=== PATIENT | male | born 1955 | race Caucasian/White ===

== ENCOUNTER 2017-12-04 10:42 | Day surgery (SDC) | END 2017-12-04 17:15 | disposition home or self-care (01) ==

== ENCOUNTER 2017-12-13 20:28 | Emergency (ER) | END 2017-12-14 02:50 | disposition home or self-care (01) ==

== ENCOUNTER 2017-12-19 11:21 | Emergency (ER) | END 2017-12-19 17:22 | disposition home or self-care (01) ==

== ENCOUNTER 2018-01-29 01:45 | Emergency (ER) | payer MEDICARE, OTHER ==
[~2018-01-29] VITALS: Ht 172.7 cm; Wt 80.0 kg
[~2018-01-29 01:45] MED LIST: ASPI81TA52 PO; ATOR40TA68 PO; BUPR150T18 PO; CLON0.5T14 PO; DOCU-144 PO; DONE10TA7 PO; FAMO40TA5 PO; GABA100C14 PO; POTA10TA37 PO; RISP0.5T3 PO
[2018-01-29 01:56] VITALS: Ht 172.7 cm; Wt 80.0 kg
[2018-01-29] MEDS ORDERED: SOD CHLORIDE 0.9% 500 ML IV STA (02:05)
[2018-01-29] MEDS ORDERED: ALBUTEROL 0.083% (NEB) 2.5 MG/3 ML AMP HHN STA (02:05)
[2018-01-29] MEDS ORDERED: RISP3TAB3 PO (02:21)
[2018-01-29] MEDS ORDERED: GABA300C16 PO (02:21)
[2018-01-29] MEDS ORDERED: HYDR-4011 PO (02:22)
[2018-01-29] MEDS ORDERED: IPRATROPIUM (NEB) 0.5 MG/2.5 ML AMP INH ONE (02:30)
[2018-01-29] MEDS ORDERED: IBUPROFEN 600 MG TAB PO ONE (03:30)
[2018-01-29] MEDS ORDERED: ALBU18HF INHALATION (05:27)
[2018-01-29] MEDS ORDERED: AZIT250T PO (05:27)
[2018-01-29 06:46] VITALS: BP 102/60; PULSE 65; RESP 19
--- NOTE | 2018-03-02 23:31 | ERD ---
ER Documentation Chief Complaint Chief Complaint BIBA from [facility],left side body pain,gen weakness & SOB X8 days HPI 62-year-old brought in from [facility] and was elicited by for general weakness shortness for 3 days. Denies nausea vomiting fevers or chills. Pain is mild to moderate intensity. Patient seen here multiple times for very similar complaints. ROS All systems reviewed and are negative except as per history of present illness. Medications Home Meds Active Scripts Naproxen* (Naprosyn*) 500 Mg Tablet, 500 MG PO BID PRN for PAIN AND/OR INFLAMMATION, #30 TAB Prov:ELBA SALOMON PA-C 02/20/18 Clindamycin Hcl* (Clindamycin Hcl*) 300 Mg Capsule, 300 MG PO TID for 10 Days, CAP Prov:ELBA SALOMON PA-C 02/20/18 Albuterol Sulfate* (Ventolin HFA*) 18 Gm Hfa.aer.ad, 2 PUFF INHALATION Q4H, #1 INHALER Prov:SUYAPA CORBETT 01/29/18 Azithromycin* (Zithromax*) 250 Mg Tablet, 250 MG PO .ZPACK DIRECTED, #6 TAB TAKE 500 MG (2 TABS) THE FIRST DAY THEN 250 MG (1 TAB) DAYS 2-5 Prov:SUYAPA CORBETT 01/29/18 Potassium Chloride* (K-Dur*) 10 Meq Tab.prt.sr, 40 MEQ PO ONCE, #1 TAB Prov:BROCK CORTES MD 12/14/17 Reported Medications Hydrocodone/Acetaminophen ([place] 5-325 Tablet) 1 Each Tablet, 1 EACH PO PRN for PAIN LEVEL 6-10, TAB 01/29/18 Risperidone* (Risperidone*) 3 Mg Tablet, 3 MG PO BID, TAB 01/29/18 Gabapentin* (Gabapentin*) 300 Mg Capsule, 300 MG PO TID, #90 CAP 01/29/18 Clonazepam* (Clonazepam*) 0.5 Mg Tablet, 0.25 MG PO Q8H for ANXIETY, TAB take 1/2 tablet by mouth Three times daily 12/04/17 Bupropion Hcl* (Bupropion Hcl SR*) 150 Mg Tablet.er, 150 MG PO DAILY, TAB.SA 10/17/18 Famotidine* (Famotidine*) 40 Mg Tablet, 40 MG PO HS, #30 TAB 12/04/17 Docusate Sodium* (Colace*) 100 Mg Capsule, 100 MG PO Q24H PRN for CONSTIPATION, #30 CAP 12/04/17 Atorvastatin* (Atorvastatin*) 40 Mg Tablet, 40 MG PO QHS, #30 TAB 12/04/17 Aspirin (Low Dose Aspirin) 81 Mg Tablet.dr, 81 MG PO DAILY, #30 TAB 12/04/17 Donepezil* (Aricept*) 10 Mg Tablet, 10 MG PO DAILY, TAB 12/04/17 Allergies Allergies: Coded Allergies: No Known Drug Allergies (Unverified Allergy, Unknown, 02/20/18) PMhx/Soc History of Surgery: Yes (RIGHT INGUINAL HERNIA) Anesthesia Reaction: No Hx Neurological Disorder: No Hx Respiratory Disorders: No Hx Cardiac Disorders: Yes (hyperlipidemia) Hx Psychiatric Problems: Yes (SCHIZOPHRENIA) Hx Miscellaneous Medical Probl: No Hx Alcohol Use: No Hx Substance Use: No Hx Tobacco Use: No Smoking Status: Never smoker Physical Exam Physical Exam Const: No acute distress Head: Atraumatic Eyes: Normal Conjunctiva ENT: Normal External Ears, Nose and Mouth. Neck: Full range of motion. No meningismus. Resp: Clear to auscultation bilaterally Cardio: Regular rate and rhythm, no murmurs Abd: Soft, non tender, non distended. Normal bowel sounds Skin: No petechiae or rashes Back: No midline or flank tenderness Ext: No cyanosis, or edema Neur: Awake and alert Psych: Normal Mood and Affect Results 24 hrs Laboratory Tests Test 01/29/18 02:25 01/29/18 02:34 White Blood Count 15.0 10^3/ul Red Blood Count 4.02 10^6/ul Hemoglobin 13.8 g/dl Hematocrit 41.1 % Mean Corpuscular Volume 102.2 fl Mean Corpuscular Hemoglobin 34.3 pg Mean Corpuscular Hemoglobin Concent 33.6 g/dl Red Cell Distribution Width 13.0 % Platelet Count 181 10^3/UL Mean Platelet Volume 10.1 fl Immature Granulocytes % 0.500 % Neutrophils % 75.7 % Lymphocytes % 8.3 % Monocytes % 14.0 % Eosinophils % 1.4 % Basophils % 0.1 % Nucleated Red Blood Cells % 0.0 /100WBC Immature Granulocytes # 0.070 10^3/ul Neutrophils # 11.4 10^3/ul Lymphocytes # 1.3 10^3/ul Monocytes # 2.1 10^3/ul Eosinophils # 0.2 10^3/ul Basophils # 0.0 10^3/ul Nucleated Red Blood Cells # 0.0 10^3/ul Sodium Level 137 mmol/L Potassium Level 3.7 mmol/L Chloride Level 101 mmol/L Carbon Dioxide Level 27 mmol/L Anion Gap 9 Blood Urea Nitrogen 16 mg/dl Creatinine 0.79 mg/dl Est Glomerular Filtrat Rate mL/min > 60 mL/min Glucose Level 100 mg/dl Calcium Level 8.9 mg/dl Total Bilirubin 1.0 mg/dl Direct Bilirubin 0.00 mg/dl Indirect Bilirubin 1.0 mg/dl Aspartate Amino Transf (AST/SGOT) 37 IU/L Alanine Aminotransferase (ALT/SGPT) 21 IU/L Alkaline Phosphatase 119 IU/L Troponin I < 0.012 ng/ml B-Type Natriuretic Peptide 53 PG/ML Total Protein 6.7 g/dl Albumin 3.7 g/dl Globulin 3.00 g/dl Albumin/Globulin Ratio 1.23 POC Venous Lactate 1.1 mmol/L Current Medications Medications Dose Sig/Aleksey Start Time Status Last (Trade) Ordered Route PRN Stop Time Admin Dose Reason Admin Sodium 500 ml @ Q1H STAT 01/29/18 DC 01/29/18 Chloride 500 mls/hr IV 02:05 03:15 01/29/18 03:04 Albuterol 5 mg ONCE STAT 01/29/18 DC 01/29/18 (Proventil HHN 02:05 02:28 0.083% (Neb)) 01/29/18 02:07 Ipratropium 0.5 mg ONCE ONCE 18 DC 01/29/18 [place] INH 02:30 02:28 (Atrovent 01/29/18 0.02% 02:31 (Neb)) Ibuprofen 600 mg ONCE ONCE 18 DC 01/29/18 (Motrin) PO 03:30 03:19 18 03:31 Procedures/MDM EKG: Rate/Rhythm: [Normal Sinus Rhythm] QRS, ST, T-waves: [No changes consistent w/ acute ischemia] Impression: [No evidence of ischemia or arrhythmia] Chest X-ray 1V Interpreted by me: Soft Tissue: No acute abnormalities Bones: No acute abnormalities Mediastinum/Cardiac Silhouette/Lungs: [No acute abnormalities] Patient's thoracic symptoms have stabilized while in the department and are stable for outpatient follow up. Exam and work up not consistent w/ ischemia, arrhythmia, PE or dissection. Departure Diagnosis: Primary Impression: Shortness of breath Condition: Stable Patient Instructions: Bronchitis With Wheezing (Adult) SUYAPA CORBETT Mar 02, 2018 23:31
[2018-03-29] MEDS ORDERED: IBUP-1542 PO (11:00)
[2018-04-01] MEDS ORDERED: IBUP-1542 PO (16:36)
== END 2018-01-29 08:48 | disposition home or self-care (01) ==
LOC: E/R 01:45
DX: R06.02 Shortness of breath (principal); R40.2142 Coma scale, eyes open, spontaneous, at arrival to emergency department; R40.2362 Coma scale, best motor response, obeys commands, at arrival to emergency department; R40.2252 Coma scale, best verbal response, oriented, at arrival to emergency department; Z79.82 Long term (current) use of aspirin
CPT/HCPCS: 71045; 80053; 83605; 83880; 84484; 85025; 87040; 94664; J7040; 36415

== ENCOUNTER 2018-02-20 09:20 | Emergency (ER) | payer MEDICARE, OTHER ==
[~2018-02-20] VITALS: Wt 90.0 kg
[~2018-02-20 09:20] MED LIST changes: +ALBU18HF INHALATION; +AZIT250T PO; -GABA100C14 PO; +GABA300C16 PO; +HYDR-4011 PO; -RISP0.5T3 PO; +RISP3TAB3 PO
[2018-02-20 09:24] VITALS: BP 142/59; PULSE 82; RESP 18
[2018-02-20] MEDS ORDERED: NAPR-985 PO (09:43)
[2018-02-20] MEDS ORDERED: CLIN300C10 PO (09:43)
--- NOTE | 2018-02-20 10:56 | ERD ---
ER Documentation Chief Complaint Chief Complaint henny elbow redness x 2 1/2 mos HPI 62-year-old male presenting with swelling and redness to the left elbow for the last 2 months. Patient denies any fevers. He had some mild pain but nothing severe. Denies any numbness or tingling. He states he is not on the computer and does not to the desk frequently. Denies medical problems. NKDA. Surgical history denies. Social history denies ROS All systems reviewed and are negative except as per history of present illness. Medications Home Meds Active Scripts Naproxen* (Naprosyn*) 500 Mg Tablet, 500 MG PO BID PRN for PAIN AND/OR INFLAMMATION, #30 TAB Prov:ELBA SALOMON PA-C 02/20/18 Clindamycin Hcl* (Clindamycin Hcl*) 300 Mg Capsule, 300 MG PO TID for 10 Days, CAP Prov:ELBA SALOMON PA-C 02/20/18 Albuterol Sulfate* (Ventolin HFA*) 18 Gm Hfa.aer.ad, 2 PUFF INHALATION Q4H, #1 INHALER Prov:SUYAPA CORBETT 01/29/18 Azithromycin* (Zithromax*) 250 Mg Tablet, 250 MG PO .ZPACK DIRECTED, #6 TAB TAKE 500 MG (2 TABS) THE FIRST DAY THEN 250 MG (1 TAB) DAYS 2-5 Prov:SUYAPA CORBETT 01/29/18 Potassium Chloride* (K-Dur*) 10 Meq Tab.prt.sr, 40 MEQ PO ONCE, #1 TAB Prov:BROCK CORTES MD 12/14/17 Reported Medications Hydrocodone/Acetaminophen ([place] 5-325 Tablet) 1 Each Tablet, 1 EACH PO PRN for PAIN LEVEL 6-10, TAB 01/29/18 Risperidone* (Risperidone*) 3 Mg Tablet, 3 MG PO BID, TAB 01/29/18 Gabapentin* (Gabapentin*) 300 Mg Capsule, 300 MG PO TID, #90 CAP 01/29/18 Clonazepam* (Clonazepam*) 0.5 Mg Tablet, 0.25 MG PO Q8H for ANXIETY, TAB take 1/2 tablet by mouth Three times daily 12/04/17 Bupropion Hcl* (Bupropion Hcl SR*) 150 Mg Tablet.er, 150 MG PO DAILY, TAB.SA 12/04/17 Famotidine* (Famotidine*) 40 Mg Tablet, 40 MG PO HS, #30 TAB 12/04/17 Docusate Sodium* (Colace*) 100 Mg Capsule, 100 MG PO Q24H PRN for CONSTIPATION, #30 CAP 12/04/17 Atorvastatin* (Atorvastatin*) 40 Mg Tablet, 40 MG PO QHS, #30 TAB 12/04/17 Aspirin (Low Dose Aspirin) 81 Mg Tablet.dr, 81 MG PO DAILY, #30 TAB 12/04/17 Donepezil* (Aricept*) 10 Mg Tablet, 10 MG PO DAILY, TAB 12/04/17 Allergies Allergies: Coded Allergies: No Known Drug Allergies (Unverified Allergy, Unknown, 02/20/18) PMhx/Soc History of Surgery: Yes (RIGHT INGUINAL HERNIA) Anesthesia Reaction: No Hx Neurological Disorder: No Hx Respiratory Disorders: No Hx Cardiac Disorders: Yes (hyperlipidemia) Hx Psychiatric Problems: Yes (SCHIZOPHRENIA) Hx Miscellaneous Medical Probl: No Hx Alcohol Use: No Hx Substance Use: No Hx Tobacco Use: No Smoking Status: Current every day smoker FmHx Family History: No diabetes, No coronary disease, No other Physical Exam Vitals Vital Signs Date Temp Pulse Resp B/P (MAP) Pulse Ox O2 O2 Flow FiO2 Time Delivery Rate 02/20/18 97.4 82 18 142/59 99 09:24 (86) Physical Exam GENERAL: The patient is well-appearing, well-nourished, in no acute distress CHEST: Clear to auscultation bilaterally. There are no rales, wheezes or rhonchi. HEART: Regular rate and rhythm. No murmurs, clicks, rubs or gallops. No S3 or S4. EXTREMITIES: Equal pulses bilaterally. There is no peripheral clubbing, cyanosis or edema. No focal swelling or erythema. Full range of motion. NEUROLOGIC: Alert and oriented. Motor strength in all 4 extremities with 5 out of 5 strength. SKIN: Erythema noted to the elbow with mild swelling. No fluctuance. No lymphatic streaking. Procedures/MDM ER course: Ice pack given the ED. MDM: 62-year-old male presenting with erythema to the elbow. I have low suspicion for septic joint. Patient has inflamed bursitis. I will treat with antibiotics in case there is an underlying infection however I believe erythema and swelling is due to inflammation. I have low suspicion for neurovascular deficit. Patient is discharged stricter precautions and told to follow-up with primary care within 1-2 days for close evaluation. Patient is told symptoms change or worsen to return to the ER immediately. All questions answered at discharge Departure Diagnosis: Primary Impression: Bursitis Condition: Stable Patient Instructions: Bursitis, Elbow (Olecranon) Additional Instructions: FOLLOW UP WITH YOUR PRIMARY CARE PHYSICIAN TOMORROW.Return to this facility if you are not improving as expected. ELBA SALOMON PA-C Feb 20, 2018 10:56
== END 2018-02-20 10:02 | disposition home or self-care (01) ==
LOC: FTE 09:20
DX: M71.9 Bursopathy, unspecified (principal); F17.210 Nicotine dependence, cigarettes, uncomplicated; Z79.82 Long term (current) use of aspirin
CPT/HCPCS: 99283

== ENCOUNTER 2018-03-12 10:17 | Emergency (ER) | payer MEDICARE, OTHER ==
[~2018-03-12] VITALS: Wt 92.4 kg
[~2018-03-12 10:17] MED LIST changes: +CLIN300C10 PO; +NAPR-985 PO
[2018-03-12 10:20] VITALS: BP 134/68; PULSE 95; RESP 18
[2018-03-12] MEDS ORDERED: KETOROLAC 15 MG INJ IM STA (12:04)
--- NOTE | 2018-03-12 13:53 | ERD ---
ER Documentation Chief Complaint Chief Complaint RIGHT ARM PAIN HPI Patient is a 62-year-old male with a past medical history of hyperlipidemia, schizophrenia, who presents the ER for concerns of right arm pain for the last 3 months. Patient describes the pain to be localized to his right elbow. Patient denies any falls or trauma. Patient denies any fevers, chills, redness, swelling, pain, fevers, active bleeding or drainage. Patient states he was diagnosed with bursitis a few weeks ago. Patient states his been taking naproxen however he continues to have pain. Patient states his primary care physician is Dr. Williamson. Patient denied any homicidal ideations or suicidal ideations. Patient is requesting to speak to a social services aide as he wants [facility] be placed in [facility]. Patient states he wants to be around people and he does not like living in his assisted living facility which she is currently at. ROS All systems reviewed and are negative except as per history of present illness. Medications Home Meds Active Scripts Naproxen* (Naprosyn*) 500 Mg Tablet, 500 MG PO BID PRN for PAIN AND/OR INFLAMMATION, #15 TAB Prov:TREY NAM PA-C 03/12/18 Naproxen* (Naprosyn*) 500 Mg Tablet, 500 MG PO BID PRN for PAIN AND/OR INFLAMMATION, #30 TAB Prov:ELBA SALOMON PA-C 02/20/18 Clindamycin Hcl* (Clindamycin Hcl*) 300 Mg Capsule, 300 MG PO TID for 10 Days, CAP Prov:ELBA SALOMON PA-C 02/20/18 Albuterol Sulfate* (Ventolin HFA*) 18 Gm Hfa.aer.ad, 2 PUFF INHALATION Q4H, #1 INHALER Prov:SUYAPA CORBETT 01/29/18 Azithromycin* (Zithromax*) 250 Mg Tablet, 250 MG PO .[place] DIRECTED, #6 TAB TAKE 500 MG (2 TABS) THE FIRST DAY THEN 250 MG (1 TAB) DAYS 2-5 Prov:SUYAPA CORBETT 01/29/18 Potassium Chloride* (K-Dur*) 10 Meq Tab.prt.sr, 40 MEQ PO ONCE, #1 TAB Prov:BROCK CORTES MD 12/14/17 Reported Medications Hydrocodone/Acetaminophen ([place] 5-325 Tablet) 1 Each Tablet, 1 EACH PO PRN for PAIN LEVEL 6-10, TAB 01/29/18 Risperidone* (Risperidone*) 3 Mg Tablet, 3 MG PO BID, TAB 01/29/18 Gabapentin* (Gabapentin*) 300 Mg Capsule, 300 MG PO TID, #90 CAP 01/29/18 Clonazepam* (Clonazepam*) 0.5 Mg Tablet, 0.25 MG PO Q8H for ANXIETY, TAB take 1/2 tablet by mouth Three times daily 12/04/17 Bupropion Hcl* (Bupropion Hcl SR*) 150 Mg Tablet.er, 150 MG PO DAILY, TAB.SA 12/04/17 Famotidine* (Famotidine*) 40 Mg Tablet, 40 MG PO HS, #30 TAB 12/04/17 Docusate Sodium* (Colace*) 100 Mg Capsule, 100 MG PO Q24H PRN for CONSTIPATION, #30 CAP 12/04/17 Atorvastatin* (Atorvastatin*) 40 Mg Tablet, 40 MG PO QHS, #30 TAB 12/04/17 Aspirin (Low Dose Aspirin) 81 Mg Tablet.dr, 81 MG PO DAILY, #30 TAB 12/04/17 Donepezil* (Aricept*) 10 Mg Tablet, 10 MG PO DAILY, TAB 12/04/17 Allergies Allergies: Coded Allergies: No Known Drug Allergies (Unverified Allergy, Unknown, 03/12/18) PMhx/Soc History of Surgery: Yes (RIGHT INGUINAL HERNIA) Anesthesia Reaction: No Hx Neurological Disorder: No Hx Respiratory Disorders: No Hx Cardiac Disorders: Yes (hyperlipidemia) Hx Psychiatric Problems: Yes (SCHIZOPHRENIA) Hx Miscellaneous Medical Probl: No Hx Alcohol Use: No Hx Substance Use: No Hx Tobacco Use: Yes Smoking Status: Current every day smoker FmHx Family History: No diabetes Physical Exam Vitals Vital Signs Date Temp Pulse Resp B/P (MAP) Pulse Ox O2 O2 Flow FiO2 Time Delivery Rate 03/12/18 98.0 95 18 134/68 99 10:20 (90) Physical Exam GENERAL: Well-developed, well-nourished male. Appears in no acute distress. Well kept. HEAD: Normocephalic, atraumatic. EYES: Pupils are equally reactive bilaterally. EOMs grossly intact. No conjunctival erythema. ENT: Moist mucous membranes. No uvula deviation. No kissing tonsils. NECK: Supple. No meningismus. Normal range of motion of the neck. LUNG: Clear to auscultation bilaterally. No rhonchi, wheezing, rales or coarse breath sounds. HEART: Regular rate and rhythm. No murmurs, rubs or gallops. EXTREMITIES: Equal pulses bilaterally. No peripheral clubbing, cyanosis or edema. No unilateral leg swelling. NEUROLOGIC: Alert and oriented. Moving all four extremities without any difficulty. Normal speech. Steady gait. SKIN: Normal color. Warm and dry. No rashes or lesions. RUE: Numerous Band-Aids noted on the elbow joint. No deformity, erythema, ecchymosis or swelling. Skin intact. Normal range of motion of the elbow. Mild tenderness to elbow joint. Non-tender to palpation. Sensation intact to light touch. Neurovascularly intact. (Able to give thumbs up, make an ok sign, cross digits 2 and 3, thumb to pinky opposition. 2+ RP.) No snuffbox tenderness. Results 24 hrs Current Medications Medications Dose Sig/Aleksey Start Time Status Last (Trade) Ordered Route PRN Stop Time Admin Dose Reason Admin Ketorolac 15 mg ONCE STAT 03/12/18 DC 03/12/18 Tromethamine IM 12:04 12:17 (Toradol) 03/12/18 12:05 Procedures/MDM ED COURSE: The patient was stable throughout ED course. I kept the patient and/or family informed of laboratory and diagnostic imaging results throughout the ED course. DIAGNOSTIC IMAGING: Read by radiologist. Patient: TRINIDAD CORREA : 1955 Age: 62 Sex: M MR #: [id number] DOS: 03/12/18 1338 Ordering MD: TREY NMA PA-C Location: [facility] Room/Bed: PROCEDURE: CR Right Elbow CLINICAL INDICATION: Elbow pain TECHNIQUE: AP, lateral, and an oblique radiographs were submitted. COMPARISON: None FINDINGS: Osseous Structures: The osseous elements appear well mineralized and intact. Joint Spaces: The joint spaces are well maintained. No joint effusion is evident. Soft Tissues: Appear unremarkable. IMPRESSION: Unremarkable right elbow series. Physician [place] Date Time Electronically viewed and signed by Physician [place] on 03/12/2018 14:22 RH/ CC: TREY NAM PA-C [id number] PROCEDURES: None. MEDICATIONS GIVEN: Toradol IM Patient tolerated medication well with no adverse reactions. Patient reported improvement in pain. MEDICAL DECISION MAKING: This is a 62-year-old male with a history of schizophrenia and hyperlipidemia presents the ER for concerns of right elbow pain for the last 3 months. Patient denies any falls or trauma. Patient was seen here approximately 3 weeks ago and diagnosed with bursitis. Patient denies any fevers, redness, swelling, decreased range of motion of the affected extremity. Patient denied any homicidal ideations or suicidal ideations. Patient also requested to speak with a social services aide as he would like to be placed in a [facility] facility. Vital signs were reviewed. Patient was afebrile. Patient was not hypoxic. X-ray imaging of the right elbow was unremarkable. Patient had no erythema, warmth, swelling or redness to the elbow joint. Patient has normal range of motion of the affected joint. Low suspicion for septic joint. Patient's previous bursitis does appear to have resolved. cheese factory worker, Soo, spoke with patient regarding his request to be placed in [facility] facility. Per social services aide, patient was advised that he is too high functioning and does not meet the criteria for [facility] facility placement. Social work advised patient that he will need to return to his assisted living facility. Patient did agree to walk back to his assisted living facility which is nearby. Patient denied any homicidal ideations or suicidal ideation. Patient does report compliance with psychiatric medications states that he does see a mobility specialist on a weekly basis. Patient will be given a refill of his naproxen for his pain. Low suspicion for fracture, dislocation, septic joint, osteomyelitis, osteoarthritis compartment syndrome. Unable to rule any ligament or tendon injuries at this time. Patient was advised he may need to follow-up with an elementary reading specialist if he continues to have pain. Patient was nontoxic, non-ill appearing prior to discharge. PRESCRIPTIONS: Naproxen DISCHARGE: At this time, patient is stable for discharge and outpatient management. RICE therapy and ROM exercises were advised to avoid stiffness. I have instructed the patient to follow-up with his/her primary care physician in 1-2 days. I have discussed with the patient the possibility of needing to see an elementary reading specialist for further workup and imaging if the pain persists. I have instructed the patient to promptly return to the ER for any new or worsening symptoms including increased pain, swelling, redness, warmth or fever. The patient and/or family expressed understanding of and agreement with this plan. All questions were answered. Home care instructions were provided. Disclaimer: Inadvertent spelling and grammatical errors are likely due to EHR/dictation software use and do not reflect on the overall quality of patient care. Also, please note that the electronic time recorded on this note does not necessarily reflect the actual time of the patient encounter. Departure Diagnosis: Primary Impression: Right elbow pain Additional Impression: Hx of schizophrenia Condition: Fair Patient Instructions: Sprain Elbow Additional Instructions: Call your primary care doctor TOMORROW for an appointment during the next 1-2 days.See the doctor sooner or return here if your condition worsens before your appointment time. TREY NAM PA-C Mar 12, 2018 13:53
[2018-03-12] MEDS ORDERED: NAPR-985 PO (14:24)
[2018-03-29] MEDS ORDERED: IBUP-1542 PO (11:00)
[2018-04-01] MEDS ORDERED: IBUP-1542 PO (16:36)
== END 2018-03-12 14:29 | disposition home or self-care (01) ==
LOC: FTE 10:17
DX: M25.521 Pain in right elbow (principal); F17.210 Nicotine dependence, cigarettes, uncomplicated; F20.9 Schizophrenia, unspecified; Z79.82 Long term (current) use of aspirin
CPT/HCPCS: 73080; 96372; 99284; J1885

== ENCOUNTER 2018-03-22 16:04 | Emergency (ER) | payer MEDICARE, OTHER ==
[~2018-03-22] VITALS: Ht 172.7 cm; Wt 93.5 kg
[2018-03-22 16:32] VITALS: BP 120/62; PULSE 68; RESP 18; Ht 172.7 cm; Wt 93.5 kg
[2018-03-22] MEDS ORDERED: KETOROLAC 30 MG INJ IM STA (17:19)
[2018-03-22] MEDS ORDERED: TYL500 PO (18:39)
--- NOTE | 2018-03-22 18:41 | ERD ---
ER Documentation Chief Complaint Chief Complaint R arm pain X 3 months ROS All systems reviewed and are negative except as per history of present illness. Medications Home Meds Active Scripts Acetaminophen* (Tylenol*) 500 Mg Tab, 500 MG PO Q4H PRN for MILD PAIN LEVEL 1-3, #30 TAB Prov:LEONORMIKE 03/22/18 Naproxen* (Naprosyn*) 500 Mg Tablet, 500 MG PO BID PRN for PAIN AND/OR INFLAMMATION, #15 TAB Prov:TREY NAM PA-C 03/12/18 Naproxen* (Naprosyn*) 500 Mg Tablet, 500 MG PO BID PRN for PAIN AND/OR INFLAMMATION, #30 TAB Prov:ELBA SALOMON PA-C 02/20/18 Clindamycin Hcl* (Clindamycin Hcl*) 300 Mg Capsule, 300 MG PO TID for 10 Days, CAP Prov:ELBA SALOMON PA-C 02/20/18 Albuterol Sulfate* (Ventolin HFA*) 18 Gm Hfa.aer.ad, 2 PUFF INHALATION Q4H, #1 INHALER Prov:SUYAPA CORBETT 01/29/18 Azithromycin* (Zithromax*) 250 Mg Tablet, 250 MG PO .AzebPACK DIRECTED, #6 TAB TAKE 500 MG (2 TABS) THE FIRST DAY THEN 250 MG (1 TAB) DAYS 2-5 Prov:SUYAPA CORBETT 01/29/18 Potassium Chloride* (K-Dur*) 10 Meq Tab.prt.sr, 40 MEQ PO ONCE, #1 TAB Prov:BROCK CORTES MD 12/14/17 Reported Medications Hydrocodone/Acetaminophen ([place] 5-325 Tablet) 1 Each Tablet, 1 EACH PO PRN for PAIN LEVEL 6-10, TAB 01/29/18 Risperidone* (Risperidone*) 3 Mg Tablet, 3 MG PO BID, TAB 01/29/18 Gabapentin* (Gabapentin*) 300 Mg Capsule, 300 MG PO TID, #90 CAP 01/29/18 Clonazepam* (Clonazepam*) 0.5 Mg Tablet, 0.25 MG PO Q8H for ANXIETY, TAB take 1/2 tablet by mouth Three times daily 12/04/17 Bupropion Hcl* (Bupropion Hcl SR*) 150 Mg Tablet.er, 150 MG PO DAILY, TAB.SA 12/04/17 Famotidine* (Famotidine*) 40 Mg Tablet, 40 MG PO HS, #30 TAB 12/04/17 Docusate Sodium* (Colace*) 100 Mg Capsule, 100 MG PO Q24H PRN for CONSTIPATION, #30 CAP 12/04/17 Atorvastatin* (Atorvastatin*) 40 Mg Tablet, 40 MG PO QHS, #30 TAB 12/04/17 Aspirin (Low Dose Aspirin) 81 Mg Tablet.dr, 81 MG PO DAILY, #30 TAB 12/04/17 Donepezil* (Aricept*) 10 Mg Tablet, 10 MG PO DAILY, TAB 12/04/17 Allergies Allergies: Coded Allergies: No Known Drug Allergies (Unverified Allergy, Unknown, 03/12/18) PMhx/Soc History of Surgery: Yes (RIGHT INGUINAL HERNIA) Anesthesia Reaction: No Hx Neurological Disorder: No Hx Respiratory Disorders: No Hx Cardiac Disorders: Yes (hyperlipidemia) Hx Psychiatric Problems: Yes (SCHIZOPHRENIA) Hx Miscellaneous Medical Probl: No Hx Alcohol Use: No Hx Substance Use: No Hx Tobacco Use: Yes Smoking Status: Never smoker Physical Exam Vitals Vital Signs Date Temp Pulse Resp B/P (MAP) Pulse Ox O2 O2 Flow FiO2 Time Delivery Rate 03/22/18 97.5 68 18 120/62 96 16:32 (81) Physical Exam Const: No acute distress Head: Atraumatic Eyes: Normal Conjunctiva ENT: Normal External Ears, Nose and Mouth. Neck: Full range of motion. No meningismus. Resp: Clear to auscultation bilaterally Cardio: Regular rate and rhythm, no murmurs Abd: Soft, non tender, non distended. Normal bowel sounds Skin: No petechiae or rashes Back: No midline or flank tenderness Ext: No cyanosis, or edema Neur: Awake and alert Psych: Normal Mood and Affect Result Diagram: 03/22/18 1725 03/22/18 1725 Results 24 hrs Laboratory Tests Test 03/22/18 17:25 White Blood Count 8.8 10^3/ul Red Blood Count 4.20 10^6/ul Hemoglobin 14.1 g/dl Hematocrit 42.0 % Mean Corpuscular Volume 100.0 fl Mean Corpuscular Hemoglobin 33.6 pg Mean Corpuscular Hemoglobin Concent 33.6 g/dl Red Cell Distribution Width 13.3 % Platelet Count 190 10^3/UL Mean Platelet Volume 9.9 fl Immature Granulocytes % 0.500 % Neutrophils % 59.7 % Lymphocytes % 20.8 % Monocytes % 13.9 % Eosinophils % 4.5 % Basophils % 0.6 % Nucleated Red Blood Cells % 0.0 /100WBC Immature Granulocytes # 0.040 10^3/ul Neutrophils # 5.3 10^3/ul Lymphocytes # 1.8 10^3/ul Monocytes # 1.2 10^3/ul Eosinophils # 0.4 10^3/ul Basophils # 0.1 10^3/ul Nucleated Red Blood Cells # 0.0 10^3/ul Sodium Level 140 mmol/L Potassium Level 4.1 mmol/L Chloride Level 104 mmol/L Carbon Dioxide Level 27 mmol/L Anion Gap 9 Blood Urea Nitrogen 16 mg/dl Creatinine 0.81 mg/dl Est Glomerular Filtrat Rate mL/min > 60 mL/min Glucose Level 101 mg/dl Calcium Level 9.8 mg/dl Total Bilirubin 0.1 mg/dl Direct Bilirubin 0.00 mg/dl Indirect Bilirubin 0.1 mg/dl Aspartate Amino Transf (AST/SGOT) 44 IU/L Alanine Aminotransferase (ALT/SGPT) 30 IU/L Alkaline Phosphatase 88 IU/L Total Protein 7.1 g/dl Albumin 4.2 g/dl Globulin 2.90 g/dl Albumin/Globulin Ratio 1.44 Current Medications Medications Dose Sig/Aleksey Start Time Status Last (Trade) Ordered Route PRN Stop Time Admin Dose Reason Admin Ketorolac 30 mg ONCE STAT 03/22/18 DC 03/22/18 Tromethamine IM 17:19 03/22/18 17:23 (Toradol) 17:21 Departure Diagnosis: Primary Impression: Pain of right arm Condition: Fair Patient Instructions: Muscle Strain, Extremity Referrals: SANDY PINEDA MD (PCP) Additional Instructions: Call your primary care doctor TOMORROW for an appointment during the next 1-2 days.See the doctor sooner or return here if your condition worsens before your appointment time. MIKE GALVEZ DO Mar 22, 2018 18:41
== END 2018-03-22 18:53 | disposition home or self-care (01) ==
LOC: FTE 16:04
DX: M79.601 Pain in right arm (principal); Z79.82 Long term (current) use of aspirin; Z87.891 Personal history of nicotine dependence
CPT/HCPCS: 80053; 85025; 96372; 99284; J1885

== ENCOUNTER 2018-04-07 09:24 | Emergency (ER) | payer MEDICARE, OTHER ==
[~2018-04-07] VITALS: Ht 175.3 cm; Wt 94.0 kg
[~2018-04-07 09:24] MED LIST changes: +IBUP-1542 PO; +TYL500 PO
[2018-04-07 09:28] VITALS: BP 131/69; PULSE 75; RESP 20; Ht 175.3 cm; Wt 94.0 kg
--- NOTE | 2018-04-07 11:00 | ERD ---
ER Documentation Chief Complaint Chief Complaint Complains of chronic right arm pain (4 months) HPI 63-year-old male, returns to the emergency department after being seen here 6 days ago for similar symptoms, complaining of chronic right arm pain for 4 months, he is requesting a shot of Toradol. Otherwise, he denies any recent trauma, no fever, no chills, no edema or erythema. ROS All systems reviewed and are negative except as per history of present illness. Medications Home Meds Active Scripts Ibuprofen* (Motrin*) 400 Mg Tab, 400 MG PO Q8, #15 TAB Prov:PIOTR ELLIS MD 04/07/18 Ibuprofen* (Motrin*) 600 Mg Tab, 600 MG PO Q6, #20 TAB Prov:ALEXY GOMEZ MD 04/01/18 Ibuprofen* (Motrin*) 600 Mg Tab, 600 MG PO Q6, #30 TAB Prov:LUZMARIA HARRIS PA-C 03/29/18 Acetaminophen* (Tylenol*) 500 Mg Tab, 500 MG PO Q4H PRN for MILD PAIN LEVEL 1-3, #30 TAB Prov:MIKE GALEVZ DO 03/22/18 Naproxen* (Naprosyn*) 500 Mg Tablet, 500 MG PO BID PRN for PAIN AND/OR INFLAMMATION, #15 TAB Prov:TREY NAM PA-C 03/12/18 Naproxen* (Naprosyn*) 500 Mg Tablet, 500 MG PO BID PRN for PAIN AND/OR INFLAMMATION, #30 TAB Prov:ELBA SALOMON PA-C 02/20/18 Clindamycin Hcl* (Clindamycin Hcl*) 300 Mg Capsule, 300 MG PO TID for 10 Days, CAP Prov:ELBA SALOMON PA-C 02/20/18 Albuterol Sulfate* (Ventolin HFA*) 18 Gm Hfa.aer.ad, 2 PUFF INHALATION Q4H, #1 INHALER Prov:SUYAPA CORBETT 01/29/18 Azithromycin* (Zithromax*) 250 Mg Tablet, 250 MG PO .ZPACK DIRECTED, #6 TAB TAKE 500 MG (2 TABS) THE FIRST DAY THEN 250 MG (1 TAB) DAYS 2-5 Prov:SUYAPA CORBETT 01/29/18 Potassium Chloride* (K-Dur*) 10 Meq Tab.prt.sr, 40 MEQ PO ONCE, #1 TAB Prov:BROCK CORTES MD 12/14/17 Reported Medications Hydrocodone/Acetaminophen ([place] 5-325 Tablet) 1 Each Tablet, 1 EACH PO PRN for PAIN LEVEL 6-10, TAB 01/29/18 Risperidone* (Risperidone*) 3 Mg Tablet, 3 MG PO BID, TAB 01/29/18 Gabapentin* (Gabapentin*) 300 Mg Capsule, 300 MG PO TID, #90 CAP 01/29/18 Clonazepam* (Clonazepam*) 0.5 Mg Tablet, 0.25 MG PO Q8H for ANXIETY, TAB take 1/2 tablet by mouth Three times daily 12/04/17 Bupropion Hcl* (Bupropion Hcl SR*) 150 Mg Tablet.er, 150 MG PO DAILY, TAB.SA 12/04/17 Famotidine* (Famotidine*) 40 Mg Tablet, 40 MG PO HS, #30 TAB 12/04/17 Docusate Sodium* (Colace*) 100 Mg Capsule, 100 MG PO Q24H PRN for CONSTIPATION, #30 CAP 12/04/17 Atorvastatin* (Atorvastatin*) 40 Mg Tablet, 40 MG PO QHS, #30 TAB 12/04/17 Aspirin (Low Dose Aspirin) 81 Mg Tablet.dr, 81 MG PO DAILY, #30 TAB 12/04/17 Donepezil* (Aricept*) 10 Mg Tablet, 10 MG PO DAILY, TAB 12/04/17 Allergies Allergies: Coded Allergies: No Known Drug Allergies (Unverified Allergy, Unknown, 04/01/18) PMhx/Soc History of Surgery: Yes (RIGHT INGUINAL HERNIA) Anesthesia Reaction: No Hx Neurological Disorder: No Hx Respiratory Disorders: No Hx Cardiac Disorders: Yes (hyperlipidemia) Hx Psychiatric Problems: Yes (SCHIZOPHRENIA) Hx Miscellaneous Medical Probl: No Hx Alcohol Use: No Hx Substance Use: No Hx Tobacco Use: Yes FmHx Family History: diabetes; No coronary disease Physical Exam Vitals Vital Signs Date Temp Pulse Resp B/P (MAP) Pulse Ox O2 O2 Flow FiO2 Time Delivery Rate 04/07/18 97.6 75 20 131/69 97 09:28 (89) Physical Exam Const: No acute distress Head: Atraumatic Eyes: Normal Conjunctiva ENT: Normal External Ears, Nose and Mouth. Neck: Full range of motion. No meningismus. Resp: Clear to auscultation bilaterally Cardio: Regular rate and rhythm, no murmurs Abd: Soft, non tender, non distended. Normal bowel sounds Skin: No petechiae or rashes Back: No midline or flank tenderness Ext: No cyanosis, or edema Neur: Awake and alert Psych: Normal Mood and Affect Results 24 hrs Current Medications Medications Dose Sig/Aleksey Start Time Status Last (Trade) Ordered Route PRN Stop Time Admin Dose Reason Admin Ketorolac 30 mg ONCE STAT 04/07/18 DC Tromethamine IM 11:07 (Toradol) 04/07/18 11:09 Procedures/MDM At the time of discharge, vital signs stable. Differential diagnosis include but not limited to: Soft tissue contusion, sprain/strain, muscle spasm, fracture. Neurovascular exam grossly intact. no clinical findings suggestive of fracture, no acute deformity, no edema, no rashes. Physical examination and clinical presentation consistent most likely with chronic arm pain. During the ED course the patient remained stable, without complaints. Results and clinical impression discussed with patient who agrees with management. The patient is stable to be treated outpatient and will be dischar ged home with recommendations and close monitoring The patient was instructed to follow up with the primary care provider in the next 48h. If symptoms persist, worsen or new symptoms develop, then patient should return to the ED immediately. Instructions explained and given to patient with acknowledgment and demonstrated understanding. Disclaimer: Inadvertent spelling and grammatical errors are likely due to EHR/dictation software use and do not reflect on the overall quality of patient care. Also, please note that the electronic time recorded on this note does not necessarily reflect the actual time of the patient encounter. Departure Diagnosis: Primary Impression: Chronic arm pain Laterality: right Qualified Codes: M79.601 - Pain in right arm; G89.29 - Other chronic pain Condition: Stable Additional Instructions: Thank you very much for allowing us to participate in your care. Your health and safety is our top priority at [facility]. Call your primary care doctor TOMORROW for an appointment during the next 2-4 days and bring all the information and medications prescribed. Have prescriptions filled and follow precisely the directions on the label. If the symptoms get worse and your provider is unavailable, return to the Emergency Department immediately. SEN-GONZALES,PIOTR MD Apr 07, 2018 11:00
[2018-04-07] MEDS ORDERED: KETOROLAC 30 MG INJ IM STA (11:07)
[2018-04-07] MEDS ORDERED: IBUP-1561 PO (11:10)
[2018-04-07] MEDS ORDERED: ACET325T33 PO (11:23)
== END 2018-04-07 11:24 | disposition home or self-care (01) ==
LOC: FTE 09:24
DX: M79.601 Pain in right arm (principal); Z79.82 Long term (current) use of aspirin; Z87.891 Personal history of nicotine dependence
CPT/HCPCS: 96372; 99284; J1885

== ENCOUNTER 2018-04-16 10:20 | Emergency (ER) | payer MEDICARE, OTHER ==
[~2018-04-16] VITALS: Wt 92.3 kg
[~2018-04-16 10:20] MED LIST changes: +ACET325T33 PO; +IBUP-1561 PO
[2018-04-16 10:22] VITALS: BP 123/56; PULSE 72; RESP 20
[2018-04-16] MEDS ORDERED: KETOROLAC 60 MG INJ IM STA (10:52)
[2018-04-16] MEDS ORDERED: ACET500C5 PO (10:53)
[2018-04-16] MEDS ORDERED: ACETAMINOPHEN 500 MG TAB PO STA (11:01)
--- NOTE | 2018-04-16 14:46 | ERD ---
ER Documentation Chief Complaint Chief Complaint chronic r. arm pain HPI 63-year-old male complaining of chronic right arm pain. Patient states this is been going on for the last 3-4 months and patient is requesting Tylenol. He states he does not like ibuprofen and has been using BenGay with no alleviation. Patient denies any recent traumatic injury and insists that this is a chronic problem. Patient states that he has had x-rays in the past and everything was normal. Denies any swelling or numbness to his hand. Medical history is hypertension and schizophrenia. NKDA. Surgical history is hernia repair December 04. Social history smokes 14 cigarettes a day. Drug use denies ROS All systems reviewed and are negative except as per history of present illness. Medications Home Meds Active Scripts Acetaminophen* (Tylophen*) 500 Mg Capsule, 1 CAP PO Q6H PRN for PAIN AND OR ELEVATED TEMP, #60 CAP Prov:ELBA SALOMON PA-C 04/16/18 Acetaminophen* (Tylenol*) 325 Mg Tablet, 2 TAB PO Q6 PRN for PAIN AND OR ELEVATED TEMP, #30 TAB Prov:PIOTR ELLIS MD 04/07/18 Ibuprofen* (Motrin*) 400 Mg Tab, 400 MG PO Q8, #15 TAB Prov:PIOTR ELLIS MD 04/07/18 Ibuprofen* (Motrin*) 600 Mg Tab, 600 MG PO Q6, #20 TAB Prov:ALEXY GOMEZ MD 04/01/18 Ibuprofen* (Motrin*) 600 Mg Tab, 600 MG PO Q6, #30 TAB Prov:LUZMARIA HARRIS PA-C 03/29/18 Acetaminophen* (Tylenol*) 500 Mg Tab, 500 MG PO Q4H PRN for MILD PAIN LEVEL 1-3, #30 TAB Prov:MIKE GALVEZ DO 03/22/18 Naproxen* (Naprosyn*) 500 Mg Tablet, 500 MG PO BID PRN for PAIN AND/OR INFLAMMATION, #15 TAB Prov:TREY NAM PA-C 03/12/18 Naproxen* (Naprosyn*) 500 Mg Tablet, 500 MG PO BID PRN for PAIN AND/OR INFLAMMATION, #30 TAB Prov:ELBA SALOMON PA-C 02/20/18 Clindamycin Hcl* (Clindamycin Hcl*) 300 Mg Capsule, 300 MG PO TID for 10 Days, CAP Prov:ELBA SALOMON PA-C 02/20/18 Albuterol Sulfate* (Ventolin HFA*) 18 Gm Hfa.aer.ad, 2 PUFF INHALATION Q4H, #1 INHALER Prov:SUYAPA CORBETT S. 01/29/18 Azithromycin* (Zithromax*) 250 Mg Tablet, 250 MG PO .[place] DIRECTED, #6 TAB TAKE 500 MG (2 TABS) THE FIRST DAY THEN 250 MG (1 TAB) DAYS 2-5 Prov:SUYAPA CORBETT S. 01/29/18 Potassium Chloride* (K-Dur*) 10 Meq Tab.prt.sr, 40 MEQ PO ONCE, #1 TAB Prov:BROCK CORTES MD 12/14/17 Reported Medications Hydrocodone/Acetaminophen ([place] 5-325 Tablet) 1 Each Tablet, 1 EACH PO PRN for PAIN LEVEL 6-10, TAB 01/29/18 Risperidone* (Risperidone*) 3 Mg Tablet, 3 MG PO BID, TAB 01/29/18 Gabapentin* (Gabapentin*) 300 Mg Capsule, 300 MG PO TID, #90 CAP 01/29/18 Clonazepam* (Clonazepam*) 0.5 Mg Tablet, 0.25 MG PO Q8H for ANXIETY, TAB take 1/2 tablet by mouth Three times daily 12/04/17 Bupropion Hcl* (Bupropion Hcl SR*) 150 Mg Tablet.er, 150 MG PO DAILY, TAB.SA 12/04/17 Famotidine* (Famotidine*) 40 Mg Tablet, 40 MG PO HS, #30 TAB 12/04/17 Docusate Sodium* (Colace*) 100 Mg Capsule, 100 MG PO Q24H PRN for CONSTIPATION, #30 CAP 12/04/17 Atorvastatin* (Atorvastatin*) 40 Mg Tablet, 40 MG PO QHS, #30 TAB 12/04/17 Aspirin (Low Dose Aspirin) 81 Mg Tablet.dr, 81 MG PO DAILY, #30 TAB 12/04/17 Donepezil* (Aricept*) 10 Mg Tablet, 10 MG PO DAILY, TAB 12/04/17 Allergies Allergies: Coded Allergies: No Known Drug Allergies (Unverified Allergy, Unknown, 2/12/19) PMhx/Soc History of Surgery: Yes (RIGHT INGUINAL HERNIA) Anesthesia Reaction: No Hx Neurological Disorder: No Hx Respiratory Disorders: No Hx Cardiac Disorders: Yes (hyperlipidemia,htn) Hx Psychiatric Problems: Yes (SCHIZOPHRENIA,depression) Hx Miscellaneous Medical Probl: No Hx Alcohol Use: No Hx Substance Use: No Hx Tobacco Use: No Smoking Status: Never smoker FmHx Family History: No diabetes, No coronary disease, No other Physical Exam Vitals Vital Signs Date Temp Pulse Resp B/P (MAP) Pulse Ox O2 O2 Flow FiO2 Time Delivery Rate 04/16/18 98.1 72 20 123/56 97 10:22 (78) Physical Exam GENERAL: The patient is well-appearing, well-nourished, in no acute distress NECK: C-spine is soft and supple. There is no meningismus. There is no cervical lymphadenopathy. CHEST: Clear to auscultation bilaterally. There are no rales, wheezes or rhonchi. HEART: Regular rate and rhythm. No murmurs, clicks, rubs or gallops. EXTREMITIES: Normal range of motion with tenderness to palpation over the right humerus. No obvious deformity. Normal range of motion with normal strength. Neurovascularly intact. No swelling. NEUROLOGIC: Alert and oriented. Cranial nerves II through XII intact. Motor strength in all 4 extremities with 5 out of 5 strength. Sensation grossly intac t. Normal speech and gait. Babinski negative. DTR 2+ throughout. SKIN: There is no apparent rash or petechiae. The skin is warm and dry. Results 24 hrs Current Medications Medications Dose Sig/Aleksey Start Time Status Last (Trade) Ordered Route PRN Stop Time Admin Dose Reason Admin Ketorolac 60 mg ONCE STAT 04/16/18 DC Tromethamine IM 10:52 (Toradol) 04/16/18 11:12 1,000 mg ONCE STAT 04/16/18 DC 04/16/18 Acetaminophen PO 11:01 11:07 (Tylenol 04/16/18 11:03 Tab) Procedures/MDM ER course: Tylenol given ED. DM: 63-year-old male presenting with arm pain. I have low suspicion for acute fracture dislocation. I have low suspicion for tendon or ligament injury. Patient likely has arthritis with chronic pain. Patient be discharged with supportive medications. I do not feel that further imaging or blood work is indicated. Patient has not had any acute injury and is only requesting medication at this time. Patient is recommended to follow-up with primary care within 1-2 days for close evaluation. All questions answered at discharge Departure Diagnosis: Primary Impression: Pain of right arm Condition: Stable Patient Instructions: Osteoarthritis: Coping with Pain Referrals: SANDY PINEDA MD (PCP) Additional Instructions: FOLLOW UP WITH YOUR PRIMARY CARE PHYSICIAN TOMORROW.Return to this facility if you are not improving as expected. ELBA SALOMON PA-C Apr 16, 2018 14:46
== END 2018-04-16 11:13 | disposition home or self-care (01) ==
LOC: FTE 10:20
DX: M79.601 Pain in right arm (principal); I10 Essential (primary) hypertension; Z79.82 Long term (current) use of aspirin
CPT/HCPCS: 99282

== ENCOUNTER 2018-04-20 08:19 | Emergency (ER) | payer MEDICARE, OTHER ==
[~2018-04-20] VITALS: Ht 172.7 cm; Wt 93.9 kg
[~2018-04-20 08:19] MED LIST changes: +ACET500C5 PO
[2018-04-20 08:23] VITALS: BP 122/75; PULSE 75; RESP 18; Ht 172.7 cm; Wt 93.9 kg
[2018-04-20] MEDS ORDERED: ACET325T33 PO (08:49)
--- NOTE | 2018-04-20 08:52 | ERD ---
ER Documentation Chief Complaint Chief Complaint CHRONIC ARM PAIN, has referral fr PMD for ortho HPI 63-year-old male is here for chronic right arm pain. He has been seen here multiple times for this in the past. Is no injury or trauma. He does have a referral to see orthopedics but has not called them to make an appointment yet. Denies taking any pain medication at home. ROS All systems reviewed and are negative except as per history of present illness. Medications Home Meds Active Scripts Acetaminophen* (Tylenol*) 325 Mg Tablet, 2 TAB PO Q6 PRN for PAIN AND OR ELEVATED TEMP, #20 TAB Prov:VIOLETA DOMÍNGUEZ PA-C 04/20/18 Acetaminophen* (Tylophen*) 500 Mg Capsule, 1 CAP PO Q6H PRN for PAIN AND OR ELEVATED TEMP, #60 CAP Prov:ELBA SALOMON PA-C 04/16/18 Acetaminophen* (Tylenol*) 325 Mg Tablet, 2 TAB PO Q6 PRN for PAIN AND OR ELEVATED TEMP, #30 TAB Prov:PIOTR ELLIS MD 04/07/18 Ibuprofen* (Motrin*) 400 Mg Tab, 400 MG PO Q8, #15 TAB Prov:PIOTR ELLIS MD 04/07/18 Ibuprofen* (Motrin*) 600 Mg Tab, 600 MG PO Q6, #20 TAB Prov:ALEXY GOMEZ MD 04/01/18 Ibuprofen* (Motrin*) 600 Mg Tab, 600 MG PO Q6, #30 TAB Prov:LUZMARIA HARRIS PA-C 03/29/18 Acetaminophen* (Tylenol*) 500 Mg Tab, 500 MG PO Q4H PRN for MILD PAIN LEVEL 1-3, #30 TAB Prov:MIKE GALVEZ DO 03/22/18 Naproxen* (Naprosyn*) 500 Mg Tablet, 500 MG PO BID PRN for PAIN AND/OR INFLAMMATION, #15 TAB Prov:TREY NAM PA-C 03/12/18 Naproxen* (Naprosyn*) 500 Mg Tablet, 500 MG PO BID PRN for PAIN AND/OR INFLAMMATION, #30 TAB Prov:ELBA SALOMON PA-C 02/20/18 Clindamycin Hcl* (Clindamycin Hcl*) 300 Mg Capsule, 300 MG PO TID for 10 Days, CAP Prov:ELBA SALOMON PA-C 02/20/18 Albuterol Sulfate* (Ventolin HFA*) 18 Gm Hfa.aer.ad, 2 PUFF INHALATION Q4H, #1 INHALER Prov:SUYAPA CORBETT. 01/29/18 Azithromycin* (Zithromax*) 250 Mg Tablet, 250 MG PO .ZPACK DIRECTED, #6 TAB TAKE 500 MG (2 TABS) THE FIRST DAY THEN 250 MG (1 TAB) DAYS 2-5 Prov:SUYAPA CORBETT. 01/29/18 Potassium Chloride* (K-Dur*) 10 Meq Tab.prt.sr, 40 MEQ PO ONCE, #1 TAB Prov:BROCK CORTES MD 12/14/17 Reported Medications Hydrocodone/Acetaminophen ([place] 5-325 Tablet) 1 Each Tablet, 1 EACH PO PRN for PAIN LEVEL 6-10, TAB 01/29/18 Risperidone* (Risperidone*) 3 Mg Tablet, 3 MG PO BID, TAB 01/29/18 Gabapentin* (Gabapentin*) 300 Mg Capsule, 300 MG PO TID, #90 CAP 01/29/18 Clonazepam* (Clonazepam*) 0.5 Mg Tablet, 0.25 MG PO Q8H for ANXIETY, TAB take 1/2 tablet by mouth Three times daily 12/04/17 Bupropion Hcl* (Bupropion Hcl SR*) 150 Mg Tablet.er, 150 MG PO DAILY, TAB.SA 12/04/17 Famotidine* (Famotidine*) 40 Mg Tablet, 40 MG PO HS, #30 TAB 12/04/17 Docusate Sodium* (Colace*) 100 Mg Capsule, 100 MG PO Q24H PRN for CONSTIPATION, #30 CAP 12/04/17 Atorvastatin* (Atorvastatin*) 40 Mg Tablet, 40 MG PO QHS, #30 TAB 12/04/17 Aspirin (Low Dose Aspirin) 81 Mg Tablet.dr, 81 MG PO DAILY, #30 TAB 12/04/17 Donepezil* (Aricept*) 10 Mg Tablet, 10 MG PO DAILY, TAB 12/04/17 Allergies Allergies: Coded Allergies: No Known Drug Allergies (Unverified Allergy, Unknown, 04/01/18) PMhx/Soc History of Surgery: Yes (RIGHT INGUINAL HERNIA) Anesthesia Reaction: No Hx Neurological Disorder: No Hx Respiratory Disorders: No Hx Cardiac Disorders: Yes (hyperlipidemia,htn) Hx Psychiatric Problems: Yes (SCHIZOPHRENIA,depression) Hx Miscellaneous Medical Probl: No Hx Alcohol Use: No Hx Substance Use: No Hx Tobacco Use: No Smoking Status: Current every day smoker FmHx Family History: No diabetes Physical Exam Vitals Vital Signs Date Temp Pulse Resp B/P (MAP) Pulse Ox O2 O2 Flow FiO2 Time Delivery Rate 04/20/18 97.9 75 18 122/75 97 08:23 (91) Physical Exam Const: No acute distress Head: Atraumatic Eyes: Normal Conjunctiva ENT: Normal External Ears, Nose and Mouth. Neck: Full range of motion. No meningismus. Resp: Clear to auscultation bilaterally Cardio: Regular rate and rhythm, no murmurs Upper Extremity -right Skin: No laceration, or evidence of external trauma Compartments: Soft Motor: Full active range of motion shoulder/elbow/wrist/hand Sensation: Intact shoulder/pinky/middle finger/thumb web space Bones: Nontender humerus/elbow/forearm/wrist/hand Snuffbox: Nontender Joints: No effusion Pulses/Perfusion: 2+ radial, Capillary refill < 2 seconds Results 24 hrs Current Medications Medications Dose Sig/Aleksey Start Time Status Last (Trade) Ordered Route PRN Stop Time Admin Dose Reason Admin 650 mg ONCE ONCE 04/20/18 Acetaminophen PO 09:00 04/20/18 (Tylenol 09:01 Tab) Procedures/MDM Patient is here with chronic pain. He was given Tylenol here and a prescription for Tylenol to go home with. He does have referral to orthopedics and he was encouraged to call them on Saturday to make an appointment. Patient counseled regarding my diagnostic impression and care plan. Prior to discharge all questions answered. Pt agrees with treatment plan and understands strict return precautions. Pt is instructed to follow up with primary care provider within 24- 48 hours. Precautionary instructions provided including instructions to return to the ER if not improving or for any worsening or changing symptoms or concerns. Departure Diagnosis: Primary Impression: Pain of right arm Condition: Stable Patient Instructions: Chronic Pain Additional Instructions: Call your primary care doctor TOMORROW for an appointment during the next 1-2 days.See the doctor sooner or return here if your condition worsens before your appointment time. VIOLETA DOMÍNGUEZ PA-C 3, 2019 08:52
[2018-04-20] MEDS ORDERED: ACETAMINOPHEN 325 MG TAB PO ONE (09:00)
== END 2018-04-20 09:08 | disposition home or self-care (01) ==
LOC: FTE 08:19
DX: M79.601 Pain in right arm (principal); I10 Essential (primary) hypertension; F17.210 Nicotine dependence, cigarettes, uncomplicated; Z79.82 Long term (current) use of aspirin
CPT/HCPCS: 99282

== ENCOUNTER 2018-06-17 17:17 | Emergency (ER) | payer MEDICARE, OTHER ==
[~2018-06-17] VITALS: Ht 172.7 cm; Wt 92.5 kg
[2018-06-17 17:53] VITALS: Ht 172.7 cm; Wt 92.5 kg
[2018-06-17] MEDS ORDERED: CLOT30CR24 TOP (20:02)
[2018-06-17] MEDS ORDERED: IBUP-1542 PO (20:02)
[2018-06-17 20:15] VITALS: BP 132/84; PULSE 88; RESP 16
--- NOTE | 2018-06-17 21:57 | ERD ---
ER Documentation Chief Complaint Chief Complaint pt has rash on right foot , denies pain . right arm pain HPI Patient is a 63-year-old male with schizophrenia who presents with a right foot fungus. He said that he has this for the past 4 to 5 months. It approximately 4 x 2 cm lesion to the medial right heel. He says that it is "itching". He has had no treatment as of yet. He also complains of chronic right arm pain. He said that his primary doctor is Dr. Williamson. ROS All systems reviewed and are negative except as per history of present illness. Medications Home Meds Active Scripts Clotrimazole* (Clotrimazole* AF) 1% - 30 Gm Cream.gm., 1 APPLIC TOP BID for 7 Days, TUB Prov:ANTHONY RIVERA MD 06/17/18 Ibuprofen* (Motrin*) 600 Mg Tab, 600 MG PO Q6H PRN for PAIN AND OR ELEVATED TEMP, #30 TAB Prov:ANTHONY RIVERA MD 06/17/18 Acetaminophen* (Tylenol*) 325 Mg Tablet, 2 TAB PO Q6 PRN for PAIN AND OR ELEVATED TEMP, #20 TAB Prov:VIOLETA DOMÍNGUEZ PA-C 04/20/18 Acetaminophen* (Tylophen*) 500 Mg Capsule, 1 CAP PO Q6H PRN for PAIN AND OR ELEVATED TEMP, #60 CAP Prov:ELBA SALOMON PA-C 04/16/18 Acetaminophen* (Tylenol*) 325 Mg Tablet, 2 TAB PO Q6 PRN for PAIN AND OR ELEVATED TEMP, #30 TAB Prov:PIOTR ELLIS MD 04/07/18 Ibuprofen* (Motrin*) 400 Mg Tab, 400 MG PO Q8, #15 TAB Prov:PIOTR ELLIS MD 04/07/18 Ibuprofen* (Motrin*) 600 Mg Tab, 600 MG PO Q6, #20 TAB Prov:ALEXY GOMEZ MD 04/01/18 Ibuprofen* (Motrin*) 600 Mg Tab, 600 MG PO Q6, #30 TAB Prov:LUZMARIA HARRIS PA-C 03/29/18 Acetaminophen* (Tylenol*) 500 Mg Tab, 500 MG PO Q4H PRN for MILD PAIN LEVEL 1-3, #30 TAB Prov:MIKE GALVEZ DO 03/22/18 Naproxen* (Naprosyn*) 500 Mg Tablet, 500 MG PO BID PRN for PAIN AND/OR INFLAMMATION, #15 TAB Prov:TREY NAM PA-C 03/12/18 Naproxen* (Naprosyn*) 500 Mg Tablet, 500 MG PO BID PRN for PAIN AND/OR INF LAMMATION, #30 TAB Prov:ELBA SALOMON PA-C 02/20/18 Clindamycin Hcl* (Clindamycin Hcl*) 300 Mg Capsule, 300 MG PO TID for 10 Days, CAP Prov:ELBA SALOMON PA-C 02/20/18 Albuterol Sulfate* (Ventolin HFA*) 18 Gm Hfa.aer.ad, 2 PUFF INHALATION Q4H, #1 INHALER Prov:SUYAPA CORBETT 01/29/18 Azithromycin* (Zithromax*) 250 Mg Tablet, 250 MG PO .[place] DIRECTED, #6 TAB TAKE 500 MG (2 TABS) THE FIRST DAY THEN 250 MG (1 TAB) DAYS 2-5 Prov:SUYAPA CORBETT 01/29/18 Potassium Chloride* (K-Dur*) 10 Meq Tab.prt.sr, 40 MEQ PO ONCE, #1 TAB Prov:BROCK CORTES MD 12/14/17 Reported Medications Hydrocodone/Acetaminophen ([place] 5-325 Tablet) 1 Each Tablet, 1 EACH PO PRN for PAIN LEVEL 6-10, TAB 01/29/18 Risperidone* (Risperidone*) 3 Mg Tablet, 3 MG PO BID, TAB 01/29/18 Gabapentin* (Gabapentin*) 300 Mg Capsule, 300 MG PO TID, #90 CAP 01/29/18 Clonazepam* (Clonazepam*) 0.5 Mg Tablet, 0.25 MG PO Q8H for ANXIETY, TAB take 1/2 tablet by mouth Three times daily 12/04/17 Bupropion Hcl* (Bupropion Hcl SR*) 150 Mg Tablet.er, 150 MG PO DAILY, TAB.SA 12/04/17 Famotidine* (Famotidine*) 40 Mg Tablet, 40 MG PO HS, #30 TAB 12/04/17 Docusate Sodium* (Colace*) 100 Mg Capsule, 100 MG PO Q24H PRN for CONSTIPATION, #30 CAP 12/04/17 Atorvastatin* (Atorvastatin*) 40 Mg Tablet, 40 MG PO QHS, #30 TAB 12/04/17 Aspirin (Low Dose Aspirin) 81 Mg Tablet.dr, 81 MG PO DAILY, #30 TAB 12/04/17 Donepezil* (Aricept*) 10 Mg Tablet, 10 MG PO DAILY, TAB 12/04/17 Allergies Allergies: Coded Allergies: No Known Drug Allergies (Unverified Allergy, Unknown, 04/01/18) PMhx/Soc Medical and Surgical Hx: pt denies Surgical Hx History of Surgery: Yes (RIGHT INGUINAL HERNIA) Anesthesia Reaction: No Hx Neurological Disorder: No Hx Respiratory Disorders: No Hx Cardiac Disorders: No Hx Psychiatric Problems: Yes Hx Miscellaneous Medical Probl: No Hx Alcohol Use: No Hx Substance Use: No Hx Tobacco Use: No Smoking Status: Never smoker FmHx Family History: No diabetes Physical Exam Vitals Vital Signs Date Temp Pulse Resp B/P (MAP) Pulse Ox O2 O2 Flow FiO2 Time Delivery Rate 06/17/18 97.8 88 16 132/84 100 Room Air 20:15 (100) 06/17/18 98.6 68 18 137/80 100 17:53 (99) Physical Exam Const: No acute distress Head: Atraumatic Eyes: Normal Conjunctiva ENT: Normal External Ears, Nose and Mouth. Neck: Full range of motion. No meningismus. Resp: Clear to auscultation bilaterally Cardio: Regular rate and rhythm, no murmurs Abd: Soft, non tender, non distended. Normal bowel sounds Skin: Scaly lesion to the right medial heel 4 x 2 cm Back: No midline or flank tenderness Ext: No cyanosis, or edema Neur: Awake and alert Psych: Normal Mood and Affect Procedures/MDM Patient is a 63-year-old male presents with right foot fungus. The patient will be given a prescription for clotrimazole cream and ibuprofen for his chronic right arm pain. He will need to follow-up with his primary doctor within 1 week. He can return for any worsening symptoms. Departure Diagnosis: Primary Impression: Fungus infection Additional Impressions: Arm pain Laterality: right Qualified Codes: M79.601 - Pain in right arm Foot pain Laterality: right Qualified Codes: M79.671 - Pain in right foot Condition: Fair Patient Instructions: Fungal Infection, Skin [General] Additional Instructions: Call your primary care doctor TOMORROW for an appointment during the next 1 WEEK.Tell the elementary secretary that you were referred from this facility.See the doctor sooner or return here if your condition worsens before your appointment time. ANTHONY RIVERA MD Jun 17, 2018 21:57
== END 2018-06-17 20:14 | disposition home or self-care (01) ==
LOC: FTE 17:17
DX: B35.3 Tinea pedis (principal); M79.601 Pain in right arm; M79.671 Pain in right foot; Z79.82 Long term (current) use of aspirin
CPT/HCPCS: 99283